=== PATIENT | male | born 1990 ===

== ENCOUNTER 2020-03-15 20:18 | Emergency (ER) | payer BC ==
[2020-03-15] MEDS ORDERED: Tetracaine HCl/PF 0.5% 4 ML Bottle EYEBOTH ONE (20:25)
[2020-03-15] MEDS ORDERED: Erythromycin Base 0.5% Ophth Oint 1 GM Tube EYEBOTH ONE (20:49)
--- NOTE | 2020-03-15 20:52 | EDM.PDOC ---
ED HPI GENERAL MEDICAL PROBLEM - General Chief Complaint: Eye Problems Stated Complaint: POSSIBLE OBJECT IN RIGHT EYE Time Seen by Provider: 03/15/20 20:27 Source of Information: Reports: Patient History Limitations: Reports: No Limitations - History of Present Illness INITIAL COMMENTS - FREE TEXT/NARRATIVE: HISTORY AND PHYSICAL: History of present illness: Patient is a 29-year-old male who presents to the emergency room with complaints of foreign body in the right eye. 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 He believes there is some metal shavings that fell and is now stuck in the eye. He was wearing safety glasses. Is not a contact wearer. Denies any visual change. Offers no systemic complaints. Review of systems: As per history of present illness and below otherwise all systems reviewed and negative. Past medical history: As per history of present illness and as reviewed below otherwise noncontributory. Surgical history: As per history of present illness and as reviewed below otherwise noncontributory. Social history: See social history for further information Family history: As per history of present illness and as reviewed below otherwise noncontributory. Physical exam: General: Well-developed and well-nourished 29-year-old male. Alert and oriented. Nontoxic-appearing and in no acute distress. HEENT: Atraumatic, normocephalic, pupils equal and reactive bilaterally, negative for conjunctival pallor or scleral icterus, mucous membranes moist, TMs normal bilaterally, throat clear, neck supple, nontender, trachea midline. No drooling or trismus noted. No meningeal signs. No hot potato voice noted. Lungs: Clear to auscultation, breath sounds equal bilaterally, chest nontender. Heart: S1S2, regular rate and rhythm without overt murmur Skin: Intact, warm, dry. No lesions or rashes noted. Extremities: Atraumatic, moves all extremities per self without difficulty or deficits. Neurovascular unremarkable. Neuro: Awake, alert, oriented. Cranial nerves II through XII unremarkable. Cerebellum unremarkable. Motor and sensory unremarkable throughout. Exam nonfocal. Notes: Tetracaine was used her to eye exam. Visual acuity is within normal limits. Fluorescein strip shows a pinpoint foreign body in the sclera at the 3 o'clock position on the right eye. Was able to use a Q-tip and gently wipe this away. Patient found immediate relief. No evidence of any further foreign body. Erythromycin ointment given while here. Tdap up-to-date. We discussed following up with ophthalmology. Supportive care measures were reviewed and discussed. Voices understanding and is agreeable to plan of care. Denies any further questions or concerns at this time. Diagnostics: [employer]: Tetracaine, Erythromycin Prescription: Erythromycin Impression: Foreign body, right eye Plan: 1. Apply small line of the ophthalmiac ointment in the right eye every 4 hours while awake x 3-5 days. 2. Follow up with Ophthalmology as needed. 3. Return to the ED as needed as discussed. Definitive disposition and diagnosis as appropriate pending reevaluation and review of above. Right Eye Pain Score (Numeric/FACES): 6 - Related Data Allergies Allergy/AdvReac Type Severity Reaction Status Date / Time No Known Allergies Allergy Verified 03/15/20 20:37 Past Medical History - Past Health History Medical/Surgical History: Denies Medical/Surgical History Social & Family History - Tobacco Use Smoking Status *Q: Never Smoker Second Hand Smoke Exposure: Yes - Caffeine Use Caffeine Use: Reports: Energy Drinks, Soda - Recreational Drug Use Recreational Drug Use: No ED ROS GENERAL - Review of Systems Review Of Systems: Comprehensive ROS is negative, except as noted in HPI. ED EXAM GENERAL W FULL EYE - Physical Exam Exam: See Below (See dictation) Course - Vital Signs Last Recorded V/S: Last Vital Signs Temp 97.2 F 03/15/20 20:33 Pulse 76 03/15/20 20:33 Resp 18 03/15/20 20:33 BP 123/62 03/15/20 20:33 Pulse Ox 96 03/15/20 20:33 - Orders/Labs/Meds Orders: Active Orders 24 hr Category Date Time Status Vision Test [RC] ASDIRECTED Care 03/15/20 20:25 Active Meds: Medications Discontinued Medications Generic Name Dose Route Start Last Admin Trade Name Freq PRN Reason Stop Dose Admin Erythromycin 1 gm 03/15/20 20:49 Erythromycin 0.5% Ophth Oint EYEBOTH 03/15/20 20:50 ONETIME ONE Tetracaine HCl 1 ml 03/15/20 20:25 Tetracaine 0.5% Steri-Unit Jailene EYEBOTH 03/15/20 20:26 ASDIRECTED ONE Departure - Departure Time of Disposition: 20:52 Disposition: Home, Self-Care 01 Clinical Impression: Eye foreign body Qualifiers: Encounter type: initial encounter Laterality: right Qualified Code(s): T15.91XA - Foreign body on external eye, part unspecified, right eye, initial encounter - Discharge Information Instructions: Eye Foreign Body, [id number] Referrals: PCP,None [Primary Care Provider] - Forms: ED Department Discharge Additional Instructions: The following information is given to patients seen in the emergency department who are being discharged to home. This information is to outline your options for follow-up care. We provide all patients seen in our emergency department with a follow-up referral. The need for follow-up, as well as the timing and circumstances, are variable depending upon the specifics of your emergency department visit. If you don't have a primary care physician on staff, we will provide you with a referral. We always advise you to contact your personal physician following an emergency department visit to inform them of the circumstance of the visit and for follow-up with them and/or the need for any referrals to a consulting specialist. The emergency department will also refer you to a specialist when appropriate. This referral assures that you have the opportunity for follow-up care with a specialist. All of these measure are taken in an effort to provide you with optimal care, which includes your follow-up. Under all circumstances we always encourage you to contact your private physician who remains a resource for coordinating your care. When calling for follow-up care, please make the office aware that this follow-up is from your recent emergency room visit. If for any reason you are refused follow-up, please contact the [facility] Emergency Department at and asked to speak to the emergency department charge nurse. [facility] [address] [place] [address] [id number] [address] [id number] 1. Apply small line of the ophthalmiac ointment in the right eye every 4 hours while awake x 3-5 days. 2. Follow up with Ophthalmology as needed. 3. Return to the ED as needed as discussed. Sepsis Event Note - Evaluation Sepsis Screening Result: No Definite Risk - Focused Exam Vital Signs: Vital Signs Temp Pulse Resp BP Pulse Ox 03/15/20 20:33 97.2 F 76 18 123/62 96 Date Exam was Performed: 03/15/20 Time Exam was Performed: 20:58 - My Orders Last 24 Hours: My Active Orders 03/15/20 20:25 Vision Test [RC] ASDIRECTED - Assessment/Plan Last 24 Hours: My Active Orders 03/15/20 20:25 Vision Test [RC] ASDIRECTED
== END 2020-03-15 21:10 | disposition home or self-care (01) ==
LOC: MW.ED 20:18
DX: T15.81XA Foreign body in other and multiple parts of external eye, right eye, initial encounter (principal); Z77.22 Contact with and (suspected) exposure to environmental tobacco smoke (acute) (chronic)
CPT/HCPCS: 65205; 99283; A9270